=== PATIENT | female | born 1965 | race Caucasian/White ===

== ENCOUNTER → 2016-12-14 | Outpatient (CLI) | payer OTHER ==
[~2016-12-14] MED LIST: ALBUTEROL SULFAT2 MG PO; AMBIEN10 MG PO; ASPIR-LOW81 MG PO; CENTRUM SILV1 TABLET PO; CLARITIN10 MG PO; DEPAKOTE ER500 MG PO; DEPAKOTE500 MG PO; DUONEB 2.5-0.5 M3 ML AEROSOL; EFFEXOR XR150 MG PO; EFFEXOR XR75 MG PO; EFFEXOR75 MG PO; Ecotrin PO; Effexor PO; FLONASE16 G1 BOTH NARES; FLOVENT 22120 INHALA IH; HYDROCODON-ACE1 EAC7 PO; HYDROXYZINE HCL25 MG PO; KEFLEX500 MG PO; Keflex PO; LASIX20 MG PO; LEVAQUIN500 MG PO; Lasix PO; MOBIC15 MG PO; MOBIC7.5 MG PO; NABUMETONE750 MG PO; NEXIUM40 MG PO; PRAZOSIN HCL1 MG PO; PROPRANOLOL HCL40 MG PO; PROTONIX40 MG PO; RANITIDINE HCL300 MG PO; SINGULAIR10 MG PO; TAMIFLU75 MG PO; THEO-DUR,THEOC200 MG PO; THEOPHYLLINE400 MG PO; TOPAMAX25 MG PO; TRAZODONE HCL150 MG PO; VENTOLIN HFA18 GM IH; VENTOLIN17 GM IH; ZYRTEC10 M3 PO; ZYRTEC10 MG PO; [UNRECOGNIZED DRUG - OTHER] IH; flovent
== END | disposition home or self-care (01) ==
LOC: AMB 09:30
PROC: 0B21XFZ Change Tracheostomy Device in Trachea, External Approach (ICD-10-PCS; principal; 2016-12-14)
DX: Z43.0 Encounter for attention to tracheostomy (principal); J44.9 Chronic obstructive pulmonary disease, unspecified; E66.9 Obesity, unspecified; Z68.34 Body mass index [BMI] 34.0-34.9, adult; J45.998 Other asthma; Z87.891 Personal history of nicotine dependence; Z79.82 Long term (current) use of aspirin; J38.02 Paralysis of vocal cords and larynx, bilateral
CPT/HCPCS: 99212